=== PATIENT | female | born 1995 | race Two or more races ===

== ENCOUNTER 2023-12-15 14:56 | Outpatient (CLI) | payer OTHER ==
[2023-12-16] MEDS ORDERED: ADVIL100 M1 (16:25)
[2023-12-16] MEDS ORDERED: ALLEGRA ALLERGY60 MG PO (16:25)
== END 2023-12-15 15:14 | disposition home or self-care (01) ==
LOC: SONOGRAMA 14:56
PROVIDERS: ATTEND Urology
DX: S37.20XA Unspecified injury of bladder, initial encounter (principal)

== ENCOUNTER 2023-12-16 16:07 | Emergency (ER) | payer OTHER ==
[~2023-12-16] VITALS: Ht 165.1 cm; Wt 54.4 kg
[2023-12-16] MEDS ORDERED: ADVIL100 M1 (16:25)
[2023-12-16] MEDS ORDERED: ALLEGRA ALLERGY60 MG PO (16:25)
[2023-12-16 17:13] LABS: HEMATOCRIT 42.3 % (36.0-45.00); HEMOGLOBIN 14.4 g/dL (12.0-15.00); MEAN CELL VOLUME 89.9 fL (80.00-100.00); MEAN CORPUSCULAR HEMOGLOBIN 30.6 pg (27.00-32.0); PLATELET COUNT 255 K/uL (150-450); RED CELL DISTRIBUTION WIDTH 13.5 % (11.5-14.5)
[2023-12-16 17:27] LABS: CALCIUM 9.2 mg/dL (8.5-10.1); CREATININE SERUM 0.88 mg/dL (0.55-1.02); GFR 75.97; POTASSIUM 4.3 mEq/L (3.5-5.1)
[2023-12-16 17:49] LABS: URINE APPEARANCE Cloudy; URINE BILIRRUBIN Negative (NEGATIVE); URINE BLOOD Large; URINE COLOR Yellow; URINE GLUCOSE Negative (NEGATIVE); URINE LEUKOCYTE Large; URINE NITRATE Negative; URINE PROTEIN Trace (NEGATIVE); URINE UROBILINOGEN 0.2 E.U./dl
[2023-12-16 17:52] LABS: URINE BACTERIA 973.8 uL (0.0-1933); URINE EPITHELIAL CELLS 5.1 uL (0.0-38.8); URINE RBC 339.4 uL (0.0-20.8); URINE WBC 1859.1 uL (0.0-23.2)
== END 2023-12-16 20:58 | disposition home or self-care (01) ==
LOC: ER 16:08
PROVIDERS: General Practice
DX: N39.0 Urinary tract infection, site not specified (principal); B96.89 Other specified bacterial agents as the cause of diseases classified elsewhere; Z91.012 Allergy to eggs; N75.0 Cyst of Bartholin's gland